=== PATIENT | male | born 1945 | race Caucasian/White ===

== ENCOUNTER 2022-04-15 14:19 | Emergency (ER) | payer MEDICARE ==
[2022-04-15 15:38] LABS: ESTIMATED GFR 27 (>60); TROPONIN I HIGH SENSITIVITY 10.3 pg/mL (<=60.3)
[2022-04-15 16:08] LABS: CORONAVIRUS COVID-19 NAA NEGATIVE (NEGATIVE)
[2022-04-15] MEDS ORDERED: Sodium Chloride 0.9% 500 ML IV SCH (17:00)
== END 2022-04-15 18:45 | disposition home or self-care (01) ==
LOC: JP.ED 14:19
DX: R06.00 Dyspnea, unspecified (principal); E86.0 Dehydration; I95.1 Orthostatic hypotension; I10 Essential (primary) hypertension; Z79.899 Other long term (current) drug therapy; Z79.82 Long term (current) use of aspirin; Z88.8 Allergy status to other drugs, medicaments and biological substances; Z88.0 Allergy status to penicillin; Z20.822 Contact with and (suspected) exposure to COVID-19
CPT/HCPCS: 0241U; 36415; 80053; 84484; 85025; 85379; 99283; 99284; J7030

== ENCOUNTER 2024-07-07 06:21 | Emergency (ER) | payer MEDICARE ==
[2024-07-07 07:45] LABS: BASOPHILS PERCENT AUTO 0.2 % (0.1-1.3); EOSINOPHILS PERCENT AUTO 0.2 % (0.0-5.4); HEMATOCRIT 31.1 % (38.4-49.7); HEMOGLOBIN 10.8 g/dL (12.9-16.9); IMMATURE GRAN ABSOLUTE AUTO 0.04 K/uL (0.00-0.23); IMMATURE GRAN PERCENT AUTO 0.8 % (0.0-0.7); LYMPHOCYTES ABSOLUTE AUTO 0.42 K/uL (0.8-3.3); LYMPHOCYTES PERCENT AUTO 7.9 % (11.4-47.7); MEAN CORPUSCULAR HEMOGLOBIN 30.1 pg (31.6-35.5); MEAN CORPUSCULAR HGB CONC 34.7 g/dL (31.6-35.5); MEAN CORPUSCULAR VOLUME 86.6 fL (81.4-99.0); MONOCYTES ABSOLUTE AUTO 0.52 K/uL (0.20-0.90); MONOCYTES PERCENT AUTO 9.8 % (3.3-12.6); NEUTROPHILS ABSOLUTE AUTO 4.32 K/uL (1.0-7.6); NEUTROPHILS PERCENT AUTO 81.1 % (40.0-78.1); PLATELET COUNT,PLT 112 K/uL (130-375); RED BLOOD CELL COUNT 3.59 M/uL (4.14-5.76); WHITE BLOOD CELL COUNT,WBC 5.3 K/uL (3.2-11.0)
[2024-07-07 07:46] LABS: BASOPHILS ABSOLUTE AUTO 0.01 K/uL (0.00-0.10); EOSINOPHILS ABSOLUTE AUTO 0.01 K/uL (0.00-0.40)
[2024-07-07] MEDS: Sodium Chloride 0.9% 1,000 ML IV SCH ×2 (07:47→10:48)
[2024-07-07 08:05] LABS: A/G RATIO 1.2 (1.2-2.2); ALANINE AMINOTRANSFERASE,ALT 51 U/L (12-78); ALBUMIN 3.5 g/dL (3.4-5.0); ALKALINE PHOSPHATASE 76 U/L (46-116); ASPARTATE AMNIOTRANSFERASE,AST 43 U/L (15-37); BILIRUBIN TOTAL 0.7 mg/dL (0.2-1.0); BLOOD UREA NITROGEN,BUN 37 mg/dL (7-18); CARBON DIOXIDE,CO2 22 mmol/L (21-32); CHLORIDE,CL 98 mmol/L (100-108); EST CRCL DRUG DOSING (CG) 33.95 mL/min; ESTIMATED GFR 34 mL/min (>60); GLUCOSE RANDOM 133 mg/dL (74-106); POTASSIUM,K 4.2 mmol/L (3.6-5.2); PROTEIN TOTAL,TP 6.4 g/dL (6.4-8.2); SODIUM,NA 130 mmol/L (140-148)
[2024-07-07 08:07] LABS: ANION GAP 14.2 mmol/L (5.0-14.0)
[2024-07-07 10:48] LABS: AMORPHOUS SEDIMENT,URINE RARE; APPEARANCE,URINE CLEAR (CLEAR); BACTERIA,URINE NOT SEEN; BILIRUBIN,URINE NEGATIVE (NEGATIVE); COLOR,URINE YELLOW (YELLOW); EPITHELIAL CELLS,URINE NOT SEEN; GLUCOSE,URINE NEGATIVE (NEGATIVE); KETONES,URINE NEGATIVE (NEGATIVE); LEUKOCYTE ESTERASE,URINE NEGATIVE (NEGATIVE); MUCUS,URINE NOT SEEN; NITRITE,URINE NEGATIVE (NEGATIVE); OCCULT BLOOD,URINE TRACE-INTACT (NEGATIVE); PH,URINE 5.5 (5.0-8.0); PROTEIN,URINE NEGATIVE (NEGATIVE); RBC,URINE 0-5 (0-5); UROBILINOGEN,URINE 0.2 EU/dL (0.2-1.0); WBC,URINE NOT SEEN (0-5)
== END 2024-07-07 13:39 | disposition home or self-care (01) ==
LOC: JP.ED 06:21
DX: R53.1 Weakness (principal); E86.0 Dehydration; I10 Essential (primary) hypertension; M19.90 Unspecified osteoarthritis, unspecified site; Z88.0 Allergy status to penicillin; Z88.8 Allergy status to other drugs, medicaments and biological substances; Z79.82 Long term (current) use of aspirin; Z79.84 Long term (current) use of oral hypoglycemic drugs; Z79.899 Other long term (current) drug therapy
CPT/HCPCS: 36415; 70450; 80053; 81001; 85025; 96360; 96361; 99285; J7030

== ENCOUNTER 2025-05-04 03:19 | Inpatient (IN) | payer MEDICARE ==
[2025-05-04 03:52] LABS: BASOPHILS PERCENT AUTO 0.4 % (0.1-1.3); EOSINOPHILS PERCENT AUTO 0.2 % (0.0-5.4); IMMATURE GRAN ABSOLUTE AUTO 0.03 K/uL (0.00-0.23); IMMATURE GRAN PERCENT AUTO 0.6 % (0.0-0.7); LYMPHOCYTES ABSOLUTE AUTO 0.22 K/uL (0.8-3.3); LYMPHOCYTES PERCENT AUTO 4.7 % (11.4-47.7); MONOCYTES ABSOLUTE AUTO 0.27 K/uL (0.20-0.90); MONOCYTES PERCENT AUTO 5.7 % (3.3-12.6); NEUTROPHILS ABSOLUTE AUTO 4.16 K/uL (1.0-7.6); NEUTROPHILS PERCENT AUTO 88.4 % (40.0-78.1); PLATELET COUNT,PLT 121 K/uL (130-375); RED BLOOD CELL COUNT 3.54 M/uL (4.14-5.76); WHITE BLOOD CELL COUNT,WBC 4.7 K/uL (3.2-11.0)
[2025-05-04 03:56] LABS: BASOPHILS ABSOLUTE AUTO 0.02 K/uL (0.00-0.10); EOSINOPHILS ABSOLUTE AUTO 0.01 K/uL (0.00-0.40)
[2025-05-04 04:16] LABS: A/G RATIO 1.1 (1.2-2.2); ALANINE AMINOTRANSFERASE,ALT 33 U/L (12-78); ASPARTATE AMNIOTRANSFERASE,AST 23 U/L (15-37); BILIRUBIN TOTAL 0.4 mg/dL (0.2-1.0); BLOOD UREA NITROGEN,BUN 54 mg/dL (7-18); CARBON DIOXIDE,CO2 24 mmol/L (21-32); CHLORIDE,CL 103 mmol/L (100-108); CREATININE 2.1 mg/dL (0.8-1.3); EST CRCL DRUG DOSING (CG) 29.93 mL/min; ESTIMATED GFR 32 mL/min (>60); GLUCOSE RANDOM 168 mg/dL (74-106); POTASSIUM,K 4.6 mmol/L (3.6-5.2); PROTEIN TOTAL,TP 6.3 g/dL (6.4-8.2); SODIUM,NA 138 mmol/L (140-148); TROPONIN I HIGH SENSITIVITY 16.7 pg/mL (<=60.3)
[2025-05-04 05:38] LABS: APPEARANCE,URINE CLEAR (CLEAR); GLUCOSE,URINE NEGATIVE (NEGATIVE); OCCULT BLOOD,URINE SMALL (NEGATIVE)
[2025-05-04 05:49] LABS: EPITHELIAL CELLS,URINE RARE
[2025-05-04 09:44] LABS: BLOOD UREA NITROGEN,BUN 48 mg/dL (7-18); CARBON DIOXIDE,CO2 29 mmol/L (21-32); CHLORIDE,CL 102 mmol/L (100-108); CREATINE KINASE,CK 154 U/L (39-308); CREATININE 2.0 mg/dL (0.8-1.3); EST CRCL DRUG DOSING (CG) 31.43 mL/min; ESTIMATED GFR 34 mL/min (>60); GLUCOSE RANDOM 130 mg/dL (74-106); PHOSPHORUS 2.9 mg/dL (2.5-4.9); POTASSIUM,K 4.3 mmol/L (3.6-5.2); SODIUM,NA 139 mmol/L (140-148)
[2025-05-04] MEDS: Lactated Ringers 1,000 ML IV SCH (10:29)
[2025-05-04] MEDS ORDERED: Ondansetron 4 MG Tab.DIS PO PRN ×2 (11:59→20:29)
[2025-05-04] MEDS ORDERED: 50% Dextrose in Water 50 ML Syringe IVPUSH PRN (13:46)
[2025-05-04] MEDS: Insulin Lispro 100 Unit/ML 3 ML KwikPen SUBCUT SCH (15:10)
[2025-05-04 19:22] LABS: BASOPHILS PERCENT AUTO 0.2 % (0.1-1.3); EOSINOPHILS PERCENT AUTO 0.0 % (0.0-5.4); IMMATURE GRAN ABSOLUTE AUTO 0.03 K/uL (0.00-0.23); IMMATURE GRAN PERCENT AUTO 0.7 % (0.0-0.7); LYMPHOCYTES ABSOLUTE AUTO 0.17 K/uL (0.8-3.3); LYMPHOCYTES PERCENT AUTO 4.0 % (11.4-47.7); MONOCYTES ABSOLUTE AUTO 0.18 K/uL (0.20-0.90); MONOCYTES PERCENT AUTO 4.2 % (3.3-12.6); NEUTROPHILS ABSOLUTE AUTO 3.90 K/uL (1.0-7.6); NEUTROPHILS PERCENT AUTO 90.9 % (40.0-78.1); PLATELET COUNT,PLT 97 K/uL (130-375); RED BLOOD CELL COUNT 3.54 M/uL (4.14-5.76); WHITE BLOOD CELL COUNT,WBC 4.3 K/uL (3.2-11.0)
[2025-05-04 19:23] LABS: BASOPHILS ABSOLUTE AUTO 0.01 K/uL (0.00-0.10); EOSINOPHILS ABSOLUTE AUTO 0.00 K/uL (0.00-0.40)
[2025-05-04 19:37] LABS: BLOOD UREA NITROGEN,BUN 43.0 mg/dL (7-18); CARBON DIOXIDE,CO2 27.0 mmol/L (21-32); CHLORIDE,CL 103.0 mmol/L (100-108); CREATININE 2.0 mg/dL (0.8-1.3); EST CRCL DRUG DOSING (CG) 31.27 mL/min; ESTIMATED GFR 34.0 mL/min (>60); GLUCOSE RANDOM 141.0 mg/dL (74-106); POTASSIUM,K 4.3 mmol/L (3.6-5.2); SODIUM,NA 137.0 mmol/L (140-148)
[2025-05-04] MEDS: Lactobacillus Rhamnosus GG (Probiotic) Cap PO SCH (20:10)
[2025-05-04 20:54] LABS: BASE EXCESS ARTERIAL -0.9 mm/L; BICARBONATE,ARTERIAL 22.0 mmol/L (22.0-26.0); O2 SATURATION ARTERIAL 98.1 % (95.0-98.0); OXYHEMOGLOBIN 95.7 %; PCO2 ARTERIAL 31.8 mmHg (35.0-42.0); PO2 ARTERIAL 94.1 mmHg (75.0-100.0); TOTAL HEMOGLOBIN 10.7 g/dL (13.5-18.0)
[2025-05-04] MEDS: Acetaminophen 1,000 MG in Premix Bag 1 BAG IV ONE (22:21)
[2025-05-04] MEDS: Ondansetron 4 MG/2 ML SDV IVPUSH PRN (22:38)
[2025-05-04] MEDS: Ondansetron 4 MG/2 ML SDV ONE (22:42)
[2025-05-05 06:01] LABS: PLATELET COUNT,PLT 80.0 K/uL (130-375); RED BLOOD CELL COUNT 3.54 M/uL (4.14-5.76); WHITE BLOOD CELL COUNT,WBC 6.2 K/uL (3.2-11.0)
[2025-05-05 06:27] LABS: BLOOD UREA NITROGEN,BUN 38 mg/dL (7-18); CARBON DIOXIDE,CO2 25 mmol/L (21-32); CHLORIDE,CL 102 mmol/L (100-108); CREATININE 1.9 mg/dL (0.8-1.3); EST CRCL DRUG DOSING (CG) 33.08 mL/min; ESTIMATED GFR 36 mL/min (>60); GLUCOSE RANDOM 123 mg/dL (74-106); PHOSPHORUS 2.6 mg/dL (2.5-4.9); POTASSIUM,K 4.3 mmol/L (3.6-5.2); SODIUM,NA 136 mmol/L (140-148)
[2025-05-05] MEDS: Heparin Sodium 5,000 Units/ML Vial SUBCUT SCH (22:02)
[2025-05-06 05:53] LABS: PLATELET COUNT,PLT 79.0 K/uL (130-375); RED BLOOD CELL COUNT 3.17 M/uL (4.14-5.76); WHITE BLOOD CELL COUNT,WBC 3.8 K/uL (3.2-11.0)
[2025-05-06 06:11] LABS: BLOOD UREA NITROGEN,BUN 30 mg/dL (7-18); CARBON DIOXIDE,CO2 25 mmol/L (21-32); CHLORIDE,CL 103 mmol/L (100-108); CREATININE 1.4 mg/dL (0.8-1.3); EST CRCL DRUG DOSING (CG) 44.90 mL/min; ESTIMATED GFR 51 mL/min (>60); GLUCOSE RANDOM 107 mg/dL (74-106); PHOSPHORUS 2.2 mg/dL (2.5-4.9); POTASSIUM,K 4.1 mmol/L (3.6-5.2); SODIUM,NA 136 mmol/L (140-148)
[2025-05-06] MEDS ORDERED: Sennosides/Docusate Sodium 50-8.6 MG Tab PO SCH (12:45)
[2025-05-07 05:48] LABS: PLATELET COUNT,PLT 91.0 K/uL (130-375); RED BLOOD CELL COUNT 3.45 M/uL (4.14-5.76); WHITE BLOOD CELL COUNT,WBC 5.3 K/uL (3.2-11.0)
[2025-05-07 06:10] LABS: BLOOD UREA NITROGEN,BUN 33 mg/dL (7-18); CARBON DIOXIDE,CO2 25 mmol/L (21-32); CHLORIDE,CL 101 mmol/L (100-108); CREATININE 1.4 mg/dL (0.8-1.3); EST CRCL DRUG DOSING (CG) 44.90 mL/min; ESTIMATED GFR 51 mL/min (>60); GLUCOSE RANDOM 125 mg/dL (74-106); PHOSPHORUS 2.7 mg/dL (2.5-4.9); POTASSIUM,K 3.9 mmol/L (3.6-5.2); SODIUM,NA 135 mmol/L (140-148)
[2025-05-08 19:22] LABS: ANAPLASMA PHAGOCYTOPHILUM PCR Detected; BABESIA MICROTI BY PCR Not Detected; EHRLICHIA CHAFFEENSIS BY PCR Not Detected; EHRLICHIA EWINGII/CANIS BY PCR Not Detected; EHRLICHIA MURIS-LIKE BY PCR Not Detected
== END 2025-05-08 14:55 | disposition home or self-care (01) | DRG 867 ==
LOC: JP.ED 03:19 → JP.MS 11:48 → OBSVTOIN 14:38
PROVIDERS: ADMIT Hospitalist; ATTEND Hospitalist
DX: A79.82 Anaplasmosis [A. phagocytophilum] (principal); J18.9 Pneumonia, unspecified organism; E86.0 Dehydration; E78.00 Pure hypercholesterolemia, unspecified; I10 Essential (primary) hypertension; M19.90 Unspecified osteoarthritis, unspecified site; E11.9 Type 2 diabetes mellitus without complications; I25.10 Atherosclerotic heart disease of native coronary artery without angina pectoris; R26.2 Difficulty in walking, not elsewhere classified; R53.1 Weakness; I95.1 Orthostatic hypotension; D69.6 Thrombocytopenia, unspecified; N40.1 Benign prostatic hyperplasia with lower urinary tract symptoms; F02.80 Dementia in other diseases classified elsewhere, unspecified severity, without behavioral disturbance, psychotic disturbance, mood disturbance, and anxiety; D64.9 Anemia, unspecified; G20.A1 Parkinson's disease without dyskinesia, without mention of fluctuations; Z88.8 Allergy status to other drugs, medicaments and biological substances; I25.2 Old myocardial infarction; Z90.5 Acquired absence of kidney; Z85.528 Personal history of other malignant neoplasm of kidney; Z95.1 Presence of aortocoronary bypass graft; Z85.828 Personal history of other malignant neoplasm of skin; Z88.0 Allergy status to penicillin; Z79.82 Long term (current) use of aspirin; Z79.899 Other long term (current) drug therapy; Z79.84 Long term (current) use of oral hypoglycemic drugs; Z95.2 Presence of prosthetic heart valve
CPT/HCPCS: 36415; 71045 ×2; 80053; 80069; 81001; 82550; 83605; 84145; 84484 ×2; 85025; 86140; 86618 ×2; 87040 ×2; 87086; 87468; 87469; 87484; 87798 ×3; 93005; 93010; 96360; 96361; 99284; 99285; A9270; C1758; J7040; J7120 ×2; 36600; 80048; 82803; 82947; 85027; 85379; 97110-GP; 97161-GP; 97530-GP; 99222; 99232; 99238; G0378; J0131; J0696; J2405; J3490; J7030

== ENCOUNTER 2025-05-19 15:12 | Emergency (ER) | payer MEDICARE ==
[2025-05-20] MEDS: Na Phos,M-B/Na Phos,DI-B 60 ML, Mineral Oil 50 ML, Docusate Sodium 400 MG, Magnesium Ci... RECTAL ONE (10:48)
== END 2025-05-19 18:03 | disposition home or self-care (01) ==
LOC: JP.ED 15:12
DX: K59.00 Constipation, unspecified (principal); E78.00 Pure hypercholesterolemia, unspecified; I10 Essential (primary) hypertension; E11.9 Type 2 diabetes mellitus without complications; Z95.1 Presence of aortocoronary bypass graft; Z88.1 Allergy status to other antibiotic agents; Z91.012 Allergy to eggs; Z88.8 Allergy status to other drugs, medicaments and biological substances; Z88.6 Allergy status to analgesic agent; Z79.84 Long term (current) use of oral hypoglycemic drugs; Z79.899 Other long term (current) drug therapy
CPT/HCPCS: 99283